=== PATIENT | female | born 1980 | race Two or more races ===

== ENCOUNTER 2025-07-09 20:17 | Emergency (ER) | payer OTHER ==
[~2025-07-09] VITALS: Ht 157.5 cm; Wt 81.0 kg
[2025-07-09 20:23] VITALS: BP 154/80; PULSE 79; RESP 16; TEMP 97.8; O2SAT 98
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
[2025-07-09] MEDS: HYDROcodone-ACET 5/325MG TAB PO ONE (22:24)
[2025-07-09] MEDS: KETOROLAC TROMETH 60MG/2ML VIAL IM ONE (22:24)
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
[2025-07-09] MEDS ORDERED: TIZA-142 PO (23:24)
[2025-07-09] MEDS ORDERED: IBUP-1456 PO (23:24)
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
== END 2025-07-09 23:29 | disposition home or self-care (01) ==
LOC: EDBD 20:17 → ER 20:17
DX: S06.0X0A Concussion without loss of consciousness, initial encounter (principal); V89.2XXA Person injured in unspecified motor-vehicle accident, traffic, initial encounter; Y93.I9 Activity, other involving external motion; Y92.488 Other paved roadways as the place of occurrence of the external cause; Y99.8 Other external cause status
CPT/HCPCS: 70450; 72040; 96372; 99285; J1100; J1885